=== PATIENT | male | born 1995 | race Caucasian/White ===

== ENCOUNTER 2025-02-18 19:36 | Emergency (ER) | payer OTHER, SELFPAY ==
[2025-02-18 19:38] VITALS: BP 128/74
--- NOTE | 2025-02-18 22:47 | ED.GENMED ---
History of Present Illness
General
Chief Complaint: DVT/Possible Blood Clot
Source: patient
Exam Limitations: none
Time Seen by Provider: 02/18/25 20:35
Nursing documentation reviewed up to this point in time: agreed with
History of Present Illness
History of Present Illness:
Patient to ED with complaint of right calf pain. WOke this AM with pain. NO history of trauma. Brought self to ED for eval, r/o DVT. No history of DVT
Past History
Past History
ED Past Medical History: None
ED Past Surgical History: None
Review of Systems
Review of Systems
Allergies reviewed?: Yes
All Other Systems: ROS reviewed and negative except as documented in HPI and ROS
Constitutional: Reports no symptoms
EENT: Reports no symptoms
Respiratory: Reports no symptoms
Cardiac: Reports no symptoms
ABD/GI: Reports no symptoms
Musculoskeletal: Reports other (right calf pain)
Skin: Reports no symptoms
Neurological: Reports no symptoms
Psychiatric: Reports no symptoms
Phy Exam
General Physical Exam
General Presentation: well appearing and no apparent distress
General age: appears stated age
General Skin: warm and dry
General Habitus: normal
General Mental: alert
Musculoskeletal Exam
Musculoskeletal Exam: full ROM and neuro vasc intact
Skin Exam
Skin Exam: normal color, warm/dry and no rash
Psychiatric Exam
Psychiatric Exam: normal mood/affect
Course
Orders/Labs/Results
Orders:
Orders
02/18/25 19:40
US Legs, Right [US Periph Venous LOWER Ext RT] Urgent
Comment:
Reason For Exam: calf pain
Vital Signs
Initial and Last Documented VS:
Initial Vital Signs
Temp Pulse Resp BP Pulse Ox
98.0 F 73 20 128/74 98
02/18/25 19:38 02/18/25 19:38 02/18/25 19:38 02/18/25 19:38 02/18/25 19:38
Last Documented Vital Signs
Temp Pulse Resp BP Pulse Ox
98.0 F 73 20 128/74 98
02/18/25 19:38 02/18/25 19:38 02/18/25 19:38 02/18/25 19:38 02/18/25 19:38
*Radiology
Radiology exam reviewed: radiology read reviewed
*Pulse Oximetry
Patient hypoxic: no
*Critical Care Note
Total Time (30-74mins, 75-104mins- exclusive of procedures): Not Applicable
ED Attending Note
-
Portions of this chart may have been created with voice recognition software.� Occasional wrong word or��sound alike� substitutions may have occurred due to the inherent limitations of voice recognition software.
Discharge Plan
Departure
Patient Disposition: Home (Routine Discharge)
Date of Disposition: 02/18/25
Time of Disposition: 20:41
Patient with high blood pressure during this ER visit?: No
Condition: Good
Covid-19: Not Applicable
Discharge Problem:
Calf pain
Instructions: Musculoskeletal Pain
Activity Restrictions/Additional Instructions:
Follow up with your family doctor.
Interventions
Interventions:
*Risk Screen - Suicide Last Done: 02/18/25 20:31
*General Assessment Last Done: 02/18/25 19:38
*Neglect/Abuse Screening Last Done: 02/18/25 20:31
*ED- Fall Risk Assessment Last Done: 02/18/25 20:31
*ED COVID-19 Vaccine History Last Done: 02/18/25 20:31
*Nursing Disposition Last Done: 02/18/25 21:19
ED- Cardiac Assessment Last Done: 02/18/25 20:31
ED- Pulmonary Assessment Last Done: 02/18/25 20:31
ED-Peripheral Vascular Assessment Last Done: 02/18/25 20:32
ED-Skin Assessment Last Done: 02/18/25 20:31
Discharge Date and Time
Discharge Date/Time: 02/18/25 21:15
Print Language: SENEGALESE
== END 2025-02-18 21:15 | disposition home or self-care (01) ==
LOC: EMR 19:36
PROVIDERS: EMERGENCY PHYSICIAN Emergency Medicine; FAMILY PHYSICIAN Family Medicine
DX: M79.661 Pain in right lower leg (principal)
CPT/HCPCS: 99284; 93971